=== PATIENT | female | born 1985 | race Caucasian/White ===

== ENCOUNTER 2017-01-12 15:08 | Emergency (ER) | payer MEDICAID ==
[~2017-01-12] VITALS: Ht 162.6 cm; Wt 45.8 kg
[~2017-01-12 15:08] MED LIST: AMPH20TA2 PO; AZIT250T5 PO; DULO30CA3 PO; DULO60CA6 PO; LAMO150T3 PO; LORA-405 PO; PRD20T PO; ZOLP10TA PO
[2017-01-12] MEDS ORDERED: RANI150T15 PO (15:44)
[2017-01-12] MEDS ORDERED: DIAZ2TAB2 PO (15:44)
[2017-01-12] MEDS ORDERED: DIPH25CA79 PO (15:44)
[2017-01-12] MEDS ORDERED: RANI300T6 PO (15:44)
[2017-01-12] MEDS ORDERED: ONDN4T PO (15:44)
[2017-01-12 17:03] LABS: BILIRUBIN,URINE NEGATIVE (NEGATIVE); KETONES,URINE 2+ (NEGATIVE); LEUKOCYTE ESTERASE ,URINE 1+ (NEGATIVE); NITRITE,URINE NEGATIVE (NEGATIVE); PH,URINE 6 (5-9); PROTEIN,URINE 2+ (NEGATIVE); UROBILINOGEN,URINE NORMAL (NORMAL)
[2017-01-12] MEDS ORDERED: KETOROLAC 30 MG/ML VIAL IVP ONE (17:30)
[2017-01-12] MEDS ORDERED: IOHEXOL 350 MG/ML 100 ML (OMNIPAQUE 350) VIAL IV ONE (18:15)
[2017-01-12] MEDS ORDERED: NS 100 ML (IVPB) BAG IV ONE (18:15)
--- NOTE | 2017-01-12 18:29 | ED Abdominal Pain ---
General Chief Complaint: Abdominal/GI Problems Stated Complaint: ABD/PELVIC PAIN Nursing Triage Note: C/O PAIN TO ABD.STATES SHE WAS IN HOSPITAL AT [facility] BUT HER WHOLE BODY STILL ACHES. THIS HAS BEEN WORSE FOR THE LAST 4 DAYS. " ALL KINDS OF TESTS" WERE COMPLETED PER PT. SAW CLEMENCIA JEZ HAD XRAY OF PELVIC AREA ET CHEST. Sepsis Screen: No Definite Risk Source of Information: Patient Exam Limitations: No Limitations History of Present Illness Time Seen By Provider: 18:28 Initial Comments To ER with reports of left lower quadrant abdominal pain. 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 No fevers or chills. She is still on keflex and flagyl. Timing/Duration: 1-2 Days Severity/Quality: Moderate Location: [facility] Radiation: No Radiation Allergies and Home Medications Allergies Coded Allergies: Penicillins (Verified Allergy, Intermediate, 06/27/16) amoxicillin (Verified Allergy, Mild, 06/27/16) clindamycin (Verified Allergy, Mild, 06/27/16) erythromycin base (Verified Allergy, Mild, 06/27/16) strawberry (Verified Allergy, Mild, 06/27/16) Home Medications Dextroamphetamine/Amphetamine 20 Mg Tablet, 20 MG PO BID, (Reported) Diazepam 2 Mg Tablet, 2 MG PO HS, (Reported) Diphenhydramine HCl 25 Mg Capsule, 25 MG PO PRN, (Reported) Duloxetine HCl 30 Mg Capsule.dr, 30 MG PO MORNING, (Reported) Duloxetine HCl 60 Mg Capsule.dr, 60 MG PO HS, (Reported) Lamotrigine 150 Mg Tablet, 150 MG PO HS, (Reported) Lorazepam 1 Mg Tablet, 1 MG PO HS, (Reported) Lorazepam 1 Mg Tablet, 1 MG PO TID PRN for ANXIETY, (Reported) Ondansetron HCl 4 Mg Tab, 4 MG PO PRN, (Reported) Polyethylene Glycol 3350 17 Gm Powd.pack, 17 GM PO BID, #10 Prescribed by: OMI SULLIVAN on 01/12/172027 Ranitidine HCl 150 Mg Tablet, 150 MG PO, (Reported) Ranitidine HCl 300 Mg Tablet, 300 MG PO PRN, (Reported) Zolpidem Tartrate 10 Mg Tablet, 10 MG PO HS, (Reported) Review of Systems Constitutional: see HPI EENTM: No Symptoms Reported Cardiovascular: No Symptoms Reported Gastrointestinal: See HPI, Abdominal Pain Genitourinary: No Symptoms Reported Musculoskeletal: no symptoms reported Skin: no symptoms reported Psychiatric/Neurological: No Symptoms Reported Endocrine: No Symptoms Reported Hematologic/Lymphatic: No Symptoms Reported (we did labs on a) Past Ywcywqz-Rcrkwl-Zwfprr Hx Patient Social History Alcohol Use: Denies Use Recreational Drug Use: No Type Used: Cigarettes Recent Foreign Travel: No Contact w/Someone Who Travel: No Recent Infectious Disease Expo: No Recent Hopitalizations: Yes (IN [place] ET D/C SUNDAY EVENING) Seasonal Allergies Seasonal Allergies: No Surgeries HX Surgeries: Yes Surgeries: Appendectomy, Gallbladder Respiratory Hx Respiratory Disorders: No Cardiovascular Hx Cardiac Disorders: No Neurological Hx Neurological Disorders: No Genitourinary Hx Genitourinary Disorders: No Gastrointestinal Hx Gastrointestinal Disorders: Yes (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) Gastrointestinal Disorders: Gastroesophageal Reflux Musculoskeletal Hx Musculoskeletal Disorders: No Endocrine Hx Endocrine Disorders: No HEENT HX ENT Disorders: No Cancer Hx Cancer: No Psychosocial Hx Psychiatric Problems: Yes Behavioral Health Disorders: Anxiety, Depression Blood Transfusions Hx Blood Disorders: No Adverse Reaction to a Blood Tr: No Family Medical History Significant Family History: Cancer, Diabetes Physical Exam Vital Signs VS - Last 72 Hours, by Label 01/12/17 15:35 Temp 97.5 Pulse 113 Resp 20 B/P (MAP) 132/101 O2 Delivery Room Air Capillary Refill : Less Than 3 Seconds General Appearance: WD/WN, no apparent distress HEENT: PERRL/EOMI, normal ENT inspection Neck: non-tender, full range of motion Respiratory: no respiratory distress, no accessory muscle use Cardiovascular: regular rate, rhythm, no murmur Gastrointestinal: normal bowel sounds, soft, tenderness Neurologic/Psychiatric: alert, normal mood/affect, oriented x 3 Skin: normal color, warm/dry Progress/Results/Core Measures Results/Orders Lab Results Laboratory Tests Test 01/12/17 16:30 01/12/17 20:00 Range/Units Urine Color PRIYA H Urine Clarity SLIGHTLY CLOUDY Urine pH 6 5-9 Urine Specific [place] 1.015 L 1.016-1.022 Urine Protein 2+ H NEGATIVE Urine Glucose (UA) NEGATIVE NEGATIVE Urine Ketones 2+ H NEGATIVE Urine Nitrite NEGATIVE NEGATIVE Urine Bilirubin NEGATIVE NEGATIVE Urine Urobilinogen NORMAL NORMAL MG/DL Urine Leukocyte Esterase 1+ H NEGATIVE Urine RBC (Auto) 5+ H NEGATIVE Urine RBC 50-100 H /HPF Urine WBC 2-5 /HPF Urine Squamous Epithelial Cells 2-5 /HPF Urine Crystals NONE /LPF Urine Bacteria NEGATIVE /HPF Urine Casts NONE /LPF Urine Mucus NEGATIVE /LPF Urine Culture Indicated NO Urine Opiates Screen POSITIVE H NEGATIVE Urine Oxycodone Screen POSITIVE H NEGATIVE Urine Methadone Screen NEGATIVE NEGATIVE Urine Propoxyphene Screen NEGATIVE NEGATIVE Urine Barbiturates Screen NEGATIVE NEGATIVE Ur Tricyclic Antidepressants Screen POSITIVE H NEGATIVE Urine Phencyclidine Screen NEGATIVE NEGATIVE Urine Amphetamines Screen POSITIVE H NEGATIVE Urine Methamphetamines Screen NEGATIVE NEGATIVE Urine Benzodiazepines Screen POSITIVE H NEGATIVE Urine Cocaine Screen NEGATIVE NEGATIVE Urine Cannabinoids Screen NEGATIVE NEGATIVE White Blood Count 9.8 4.3-11.0 10^3/uL Red Blood Count 4.48 4.35-5.85 10^6/uL Hemoglobin 13.3 11.5-16.0 G/DL Hematocrit 40 35-52 % Mean Corpuscular Volume 90 80-99 FL Mean Corpuscular Hemoglobin 30 25-34 PG Mean Corpuscular Hemoglobin Concent 33 32-36 G/DL Red Cell Distribution Width 16.6 H 10.0-14.5 % Platelet Count 368 130-400 10^3/uL Mean Platelet Volume 8.7 7.4-10.4 FL Neutrophils (%) (Auto) 45 42-75 % Lymphocytes (%) (Auto) 38 12-44 % Monocytes (%) (Auto) 11 0-12 % Eosinophils (%) (Auto) 5 0-10 % Basophils (%) (Auto) 1 0-10 % Neutrophils # (Auto) 4.5 1.8-7.8 X 10^3 Lymphocytes # (Auto) 3.8 1.0-4.0 X 10^3 Monocytes # (Auto) 1.0 0.0-1.0 X 10^3 Eosinophils # (Auto) 0.5 H 0.0-0.3 10^3/uL Basophils # (Auto) 0.1 0.0-0.1 10^3/uL Sodium Level 139 135-145 MMOL/L Potassium Level 3.6 3.6-5.0 MMOL/L Chloride Level 105 98-107 MMOL/L Carbon Dioxide Level 21 21-32 MMOL/L Anion Gap 13 5-14 MMOL/L Blood Urea Nitrogen 12 7-18 MG/DL Creatinine 0.92 0.60-1.30 MG/DL Estimat Glomerular Filtration Rate > 60 BUN/Creatinine Ratio 13 Glucose Level 73 70-105 MG/DL Calcium Level 9.2 8.5-10.1 MG/DL My Orders Orders - OMI SULLIVAN APRN Ua Culture If Indicated (01/12/17 16:51) Urine Bedside (01/12/17 16:53) Drug Screen Stat (Urine) (01/12/17 17:09) Cbc With Automated Diff (01/12/17 17:26) Basic Metabolic Panel (01/12/17 17:26) Ketorolac Injection (Toradol Injection) (01/12/17 17:30) Iohexol Injection (Omnipaque 350 Mg/Ml 1 (01/12/17 18:15) Ns (Ivpb) (Sodium Chloride 0.9% Ivpb Bag (01/12/17 18:15) Ct Abd/Pelvis Wo(Kidney Stone) (01/12/17 18:04) Ketorolac Injection (Toradol Injection) (01/12/17 18:30) Morphine Injection (Morphine Injection (01/12/17 19:45) Us Non Ob Transvaginal [id number] (01/12/17 19:41) Medications Given in ED Current Medications Medications Dose Ordered Sig/Hieu Route Start Time Stop Time Status Last Admin Dose Admin Ketorolac Tromethamine 30 mg ONCE ONCE IVP 01/12/17 17:30 01/12/17 17:31 DC 01/12/17 18:53 30 MG Morphine Sulfate 4 mg ONCE ONCE IVP 01/12/17 19:45 01/12/17 19:46 DC 01/12/17 19:51 4 MG Vital Signs/I&O Vital Sign - Last 12Hours 01/12/17 15:35 Temp 97.5 Pulse 113 Resp 20 B/P (MAP) 132/101 O2 Delivery Room Air Blood Pressure Mean: 111 Point of Care Testing Urine -Bedside: Negative Progress Note : Progress Note 1924-patient has demanded IV pain medication multiple times and is now raising her voice. When I told her that her CT scan appeared normal and that we could not find any evidence of possible ectopic or bad infection as she states they told her that she had at [place] she then states this is a bad HAE attack and that she needs antihistamines and IV pain medications. K tracks shows that she has had 10 prescribers write for 41 controlled substance prescriptions in the past year. When asked where she was diagnosed with this history of hereditary angioedema she states "are you fucking kidding me? But cannot give me the name of the physician who diagnosed her and instead hands me a card from [employer] in [facility] with the name of a manager game who she states will confirm her story. I did receive old records from [facility] after having the patient signed consent which shows that she was admitted there for pelvic inflammatory disease with a left tubo-ovarian abscess discharged on 01/07/17. Diagnostic Imaging Diagonstic Imaging: CT Comments NAME: DENIZ SALAMANCA MED REC#: [id number] PT STATUS: REG ER : 1985 PHYSICIAN: OMI SULLIVAN APRN ADMIT DATE: 01/12/17/ER Draft Date of Exam:01/12/17 CT ABD/PELVIS WO(KIDNEY STONE) PROCEDURE: CT urinary tract, rule out kidney stone. TECHNIQUE: Multiple contiguous axial images were obtained through the abdomen and pelvis without the use of intravenous contrast. INDICATION: A 31-year-old female presents to the ER with abdominal pain with increasing intensity over the last four days. Trace hematuria, left lower quadrant pain for one week. COMPARISONS: 06/27/2016. FINDINGS: Lung bases show few patchy atelectatic-type infiltrates but no significant consolidations. The visualized cardiac contour is grossly normal. Liver shows uniform attenuation. Gallbladder is surgically absent. Spleen and GE junction are normal. Stomach and duodenal sweep are grossly normal. Pancreas shows sharp margins. Adrenals are normal. Kidneys show some mild bilateral nephrocalcinosis with small discrete renal calculi. The largest on the left measures approximately 3 mm and the largest on the right measures 2 mm. There is however no evidence of hydronephrosis or hydroureter. Both ureters are seen intermittently through their course. Bladder is underfilled. The nonopacified loops of small bowel are grossly unremarkable. There is a large quantity of fecal load throughout the colon to the rectum. There is no free air, free fluid, or adenopathy. The appendix is not clearly delineated, but there is no periappendiceal region stranding to suggest an inflammatory process. The uterus and adnexa appear grossly unremarkable. Bone windows show no gross abnormalities. IMPRESSION: 1. Fecal colon with a large quantity of fecal load throughout the colon to the rectum. 2. Bilateral nephrocalcinosis with multiple small punctate 2 to 3 mm-sized discrete calculi bilaterally. There is however no evidence of obstructive uropathy. 3. No areas of peritoneal inflammation seen. The appendix is not clearly delineated but there is no periappendiceal region stranding to suggest an inflammatory process. 4. Few patchy bilateral atelectatic infiltrates but no significant consolidations. Additional nonemergent findings, as described above. Dictated on workstation # [id number] Dict: 01/12/17 1816 Trans: 01/12/17 1832 [id number] Interpreted by: MEGAN SCHAEFFER MD Electronically signed by: Departure Communication Progress Notes 2100-I discussed with the patient her constipation and left ovarian cyst and the need for repeat ultrasound in 6 months. Patient states "I don't know if you think I'm making up this hereditary angioedema or if you don't think it exists, well what ever nevermind". Patient reported to her RN Liss that "you' re the only reason I havent gone crazy and left here in handcuffs" Impression Impression: Primary Impression: Abdominal pain Additional Impression: Constipation Disposition: 01 HOME, SELF-CARE Condition: Stable Departure-Patient Inst. Decision time for Depature: 20:26 Referrals: [facility] (PCP/Family) Primary Care Physician Patient Instructions: Constipation, Adult (DC), Ovarian Cyst (DC) Add. Discharge Instructions: 1. Follow-up with your regular doctor next week 2. Return to the emergency room for fevers 3. Continue taking your antibiotics as prescribed by [facility]. ALl discharge instructions reviewed with patient and/or family. Voiced understanding. Scripts Polyethylene Glycol 3350 (Miralax) 17 Gm Powd.pack 17 GM PO BID, #10 EACH Prov: OMI SULLIVAN APRN 01/12/17 OMI SULLIVAN APRN Jan 12, 2017 18:29
[2017-01-12] MEDS ORDERED: KETOROLAC 60 MG/2 ML VIAL IM ONE (18:30)
--- NOTE | 2017-01-12 18:33 | Diagnostic Imaging Report ---
PROCEDURE: CT urinary tract, rule out kidney stone. TECHNIQUE: Multiple contiguous axial images were obtained through the abdomen and pelvis without the use of intravenous contrast. INDICATION: A 31-year-old female presents to the ER with abdominal pain with increasing intensity over the last four days. Trace hematuria, left lower quadrant pain for one week. COMPARISONS: 06/27/2016. FINDINGS: Lung bases show few patchy atelectatic-type infiltrates but no significant consolidations. The visualized cardiac contour is grossly normal. Liver shows uniform attenuation. Gallbladder is surgically absent. Spleen and GE junction are normal. Stomach and duodenal sweep are grossly normal. Pancreas shows sharp margins. Adrenals are normal. Kidneys show some mild bilateral nephrocalcinosis with small discrete renal calculi. The largest on the left measures approximately 3 mm and the largest on the right measures 2 mm. There is however no evidence of hydronephrosis or hydroureter. Both ureters are seen intermittently through their course. Bladder is underfilled. The nonopacified loops of small bowel are grossly unremarkable. There is a large quantity of fecal load throughout the colon to the rectum. There is no free air, free fluid, or adenopathy. The appendix is not clearly delineated, but there is no periappendiceal region stranding to suggest an inflammatory process. The uterus and adnexa appear grossly unremarkable. Bone windows show no gross abnormalities. IMPRESSION: 1. Fecal colon with a large quantity of fecal load throughout the colon to the rectum. 2. Bilateral nephrocalcinosis with multiple small punctate 2 to 3 mm-sized discrete calculi bilaterally. There is however no evidence of obstructive uropathy. 3. No areas of peritoneal inflammation seen. The appendix is not clearly delineated but there is no periappendiceal region stranding to suggest an inflammatory process. 4. Few patchy bilateral atelectatic infiltrates but no significant consolidations. Additional nonemergent findings, as described above. Dictated by: Dictated on workstation # [id number]
[2017-01-12] MEDS ORDERED: morphine INJ 10 MG/ML 1ML (SYR OR VIAL) IVP ONE (19:45)
[2017-01-12 20:08] LABS: BASOPHILS # (AUTO) 0.1 10^3/uL (0.0-0.1); BASOPHILS % (AUTO) 1 % (0-10); EOSINOPHILS # (AUTO) 0.5 10^3/uL (0.0-0.3); EOSINOPHILS % (AUTO) 5 % (0-10); LYMPHOCYTES # (AUTO) 3.8 X 10^3 (1.0-4.0); LYMPHOCYTES % (AUTO) 38 % (12-44); MEAN CORPUSCULAR HEMOGLOBIN 30 PG (25-34); MEAN CORPUSCULAR HGB CONC 33 G/DL (32-36); MEAN CORPUSCULAR VOLUME 90 FL (80-99); MEAN PLATELET VOLUME 8.7 FL (7.4-10.4); MONOCYTES % (AUTO) 11 % (0-12); NEUTROPHILS # (AUTO) 4.5 X 10^3 (1.8-7.8); NEUTROPHILS % (AUTO) 45 % (42-75); PLATELET COUNT 368 10^3/uL (130-400); RED BLOOD COUNT 4.48 10^6/uL (4.35-5.85); RED CELL DISTRIBUTION WIDTH 16.6 % (10.0-14.5); WHITE BLOOD COUNT 9.8 10^3/uL (4.3-11.0)
[2017-01-12 20:25] LABS: ANION GAP 13 MMOL/L (5-14); BLOOD UREA NITROGEN 12 MG/DL (7-18); BUN/CREATININE RATIO 13; CALCIUM 9.2 MG/DL (8.5-10.1); CARBON DIOXIDE 21 MMOL/L (21-32); CHLORIDE 105 MMOL/L (98-107); CREATININE SERUM 0.92 MG/DL (0.60-1.30); GFR ESTIMATED > 60; GLUCOSE 73 MG/DL (70-105); POTASSIUM 3.6 MMOL/L (3.6-5.0); SODIUM 139 MMOL/L (135-145)
[2017-01-12] MEDS ORDERED: POLY17PO6 PO (20:28)
[2017-01-12 21:00] VITALS: BP 141/105
--- NOTE | 2017-01-12 21:04 | Diagnostic Imaging Report ---
Procedure: US non OB transvaginal [id number]. Technique: Transvaginal grayscale, color Doppler and pulse duplex imaging of the pelvis was performed. Indication: Pelvic pain. Findings: The uterus measures 6.1 x 4.3 x 3.8 cm. The myometrium is normal in echogenicity without discrete mass. The endometrium measures up to 0.4 cm where visualized, and is normal in echogenicity. Right ovary was not identified due to surrounding bowel gas. The left ovary measures 2.7 x 3.1 x 2.5 cm. Within the left ovary, there is a hypovascular homogeneously hypoechoic structure, measuring 1.7 x 1.8 x 2.2 cm. Blood flow is present in the left ovary on color Doppler imaging. No suspicious adnexal mass or fluid collection. Trace simple free pelvic fluid. Impression: 1. Avascular homogeneously hypoechoic focus in the left ovary favors hemorrhagic cyst. Consider followup ultrasound in six weeks to ensure resolution and exclude a vascular neoplasm. 2. No evidence of pelvic abscess. 3. Trace free pelvic fluid. Dictated by: Dictated on workstation # [id number]
--- OUTSIDE RECORDS SUMMARY | 2017-02-04 09:02 | XMS REPORT | Continuity of Care Document ---
Author Author [facility] Organization [facility] Address Unknown Phone Unavailable Care Team Providers Care Bindery Machine Feeder Offbearer Name Role Phone Cris Lehman PCP [phone] Source Comments Some departments are not documenting in the electronic medical record. If you do not see the information that you expected, contact Release of Information in the Health Information Management department at [phone] for further assistance in locating additional records.[facility] Active Allergies and Adverse Reactions Allergen Noted Date Severity Reactions Comments Amoxicillin 09/16/2008 HIVES Benadryl 01/21/2013 SEE COMMENTS Addicted to IV benadryl, does tolerate it without complication other than sedation. Has a history of port infection many times from her crushing benadryl and putting it in there. Erythromycin 09/16/2008 HIVES Hydrocodone 11/15/2009 ITCHING Pcn 09/16/2008 HIVES [place] 12/07/2009 HIVES strawberries Current Medications Prescription Sig. Disp. Refills Start End Date Status Date ranitidine,+, (ZANTAC) Take 150 mg by mouth Active 150 mg tablet Twice Daily. diphenhydrAMINE Take 1 Cap by mouth Every 30 Cap 0 08/07/20 Active (BENADRYL) 50 mg PO 6 Hours as needed. 10 capsule LORazepam (ATIVAN) 1 mg Take 1 mg by mouth daily. Active tablet zolpidem (AMBIEN) 10 mg Take 1 Tab by mouth at 30 Tab 0 12/02/19 Active tablet bedtime as needed. 12 citalopram (CELEXA) 10 mg Take 3 Tabs by mouth at 90 Tab 0 20 Active tablet bedtime daily. 12 predniSONE (DELTASONE) 20 Take 3 Tabs by mouth 15 Tab 0 12/02/19 Active mg tablet daily. Take 60 mg a day 12 for 5 days C1 esterase inhibitor Administer 1,000 Units 12/02/19 Active (BERINERT) 500 unit through vein three times 12 injection weekly. Mon, wed ,sun DULoxetine DR (CYMBALTA) Take 60 mg by mouth Active 60 mg capsule daily. DEXAMETHASONE (DECADRON Take by mouth. 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 Multiple family members affected. Previously tried Firazyr, Berinert and Cinryze. Firazyr causes large local reactions and Berinert was not helpful. Cinryze was helpful but IV access is difficult and port had to be removed due to infection. Never trailed on Kalbitor for acute attacks. Current management includes antihistamines, steroids and narcotics for acute relief of pain/acutes. Reports relief within 1 hour. Occasionally, will receive FFP and relief with FFP. She is having more frequent attacks with increased stress at home. Multiple hospitalizations in the last few months. Patient recently had two teeth removed and attack after dental work. Previously managed by microsoft application developer at [facility]. - Please have her sign release of information for records for [facility] community program assistant. - Will start on Kalbitor for acute HAE attacks. Will assist with arranging today. - Has failed Berniert and will not likely do well on Cinryze due to IV access issues. Has not tolerated Firazyr. - We will not prescribe benadryl and/or narcotics for acute relief of attacks, particularly at home. - Can use FFP if seen and evaluated in emergency setting if no relief with Kalbitor. - Suggest limit stress. If she is to have any procedures (dental) would need to dose with Kalbitor prior to procedure. - Discussed control with patient. She is on depo shot as control. Discuss Kalbitor is class C and she expressed understanding. Bacterial vaginosis 01/03/2010 IUFD (intrauterine ) 11/07/2008 , subsequent 11/07/2008 Social History Tobacco Use Types Packs/Day Years Used Date Current Every Day Smoker 0.5 5 Smokeless Tobacco: Never Used Alcohol Use Drinks/Week oz/Week Comments No Last Filed Vital Signs Vital Sign Reading Time Taken Blood Pressure 139/82 09/02/2013 9:44 AM RETAIL WIRELESS SALES REPRESENTATIVE Pulse 88 09/02/2013 9:44 AM RETAIL WIRELESS SALES REPRESENTATIVE Temperature 36.4 C (97.5 F) 09/02/2013 9:44 AM RETAIL WIRELESS SALES REPRESENTATIVE Respiratory Rate 17 09/02/2013 9:44 AM RETAIL WIRELESS SALES REPRESENTATIVE Height 1.613 m (5' 3.5") 09/02/2013 9:44 AM RETAIL WIRELESS SALES REPRESENTATIVE Weight 47.083 kg (103 lb 12.8 09/02/2013 9:44 AM RETAIL WIRELESS SALES REPRESENTATIVE oz) Body Mass Index 18.1 09/02/2013 9:44 AM RETAIL WIRELESS SALES REPRESENTATIVE Oxygen Saturation 99% 12/02/2011 2:55 PM RETAIL WIRELESS SALES REPRESENTATIVE Plan of Care Health Maintenance Due Date Last Done Comments Physical (Comprehensive) 1993 Exam Pertussis Vaccine 1997 Tetanus Vaccine 2003 Cervical Cancer Screening 07/06/2012 07/06/2009 Influenza Vaccine 06/15/2017 Results from Last 3 Months Not on file
== END 2017-01-12 21:15 | disposition home or self-care (01) ==
LOC: EDUNIT# 15:08 → ER 15:10
DX: K59.00 Constipation, unspecified (principal); N83.202 Unspecified ovarian cyst, left side; N20.0 Calculus of kidney; Z79.899 Other long term (current) drug therapy
CPT/HCPCS: 36415; 74176; 76830; 80048; 80306; 81000; 84703; 85025; 96374; 96375; 99282

== ENCOUNTER → 2017-03-16 | Outpatient (CLI) | payer MEDICAID ==
[~2017-03-16] MED LIST changes: +DIAZ2TAB2 PO; +DIPH25CA79 PO; +ONDN4T PO; +POLY17PO6 PO; +RANI150T15 PO; +RANI300T6 PO
== END ==
LOC: PREOP 05:43
PROVIDERS: ATTEND Surgery
DX: Z01.818 Encounter for other preprocedural examination (principal); K21.9 Gastro-esophageal reflux disease without esophagitis

== ENCOUNTER → 2017-04-05 | Outpatient (CLI) | payer MEDICAID | DX: N83.202 Unspecified ovarian cyst, left side (principal); N92.1 Excessive and frequent menstruation with irregular cycle ==

== ENCOUNTER 2017-04-09 09:00 | Outpatient (CLI) | payer MEDICAID ==
[~2017-04-09] VITALS: Ht 162.6 cm; Wt 45.8 kg
[2017-04-09] MEDS ORDERED: QUET25TA PO (09:44)
[2017-04-10] MEDS ORDERED: SUCR1TAB36 PO (10:08)
[2017-04-10] MEDS ORDERED: PANT40TA2 PO (10:08)
== END 2017-04-09 10:06 ==
LOC: PREOP 09:00
PROVIDERS: ATTEND Surgery
DX: Z01.818 Encounter for other preprocedural examination (principal); K21.9 Gastro-esophageal reflux disease without esophagitis

== ENCOUNTER 2017-04-10 08:14 | Day surgery (SDC) | payer MEDICAID ==
[~2017-04-10] VITALS: Ht 162.6 cm; Wt 45.8 kg
[~2017-04-10 08:14] MED LIST changes: +QUET25TA PO
[2017-04-10] MEDS ORDERED: LACTATED RINGERS 1,000 ML IV STA ×2 (08:18→08:19)
[2017-04-10] MEDS ORDERED: HURRICAINE EXT TUBE (BENZOCAINE) XX PRN (08:30)
[2017-04-10] MEDS ORDERED: PROPOFOL INJECTION 50 ML IV ONE (08:33)
[2017-04-10] MEDS ORDERED: MIDAZOLAM 2 MG/2 ML (VERSED) VIAL ONE (08:33)
[2017-04-10 08:40] VITALS: BP 116/82
[2017-04-10] MEDS ORDERED: HURRICAINE EXT TUBE (BENZOCAINE) ONE (08:54)
--- NOTE | 2017-04-10 09:07 | Progress Note-Pre Operative ---
Pre-Operative Progress Note H&P Reviewed The H&P was reviewed, patient examined and no changes noted. Date Seen by Provider: Apr 10, 2017 Time Seen by Provider: 09:06 Date H&P Reviewed: Apr 10, 2017 Time H&P Reviewed: 09:06 Pre-Operative Diagnosis: gerd SONA MEDINA DO Apr 10, 2017 9:07 am
--- NOTE | 2017-04-10 09:47 | Progress Note-Post Operative ---
Post-Operative Progess Note Surgeon (s)/Brand Analyst (s) Surgeon SONA MEDINA DO Brand Analyst: na Pre-Operative Diagnosis gerd Post-Operative Diagnosis duodenitis,gastritis, hiatal hernia, reflux esophagitis Procedure & Operative Findings Date of Procedure 04/10/17 Procedure Performed/Findings egd c biopsies Anesthesia Type per cash posting clerk Estimated Blood Loss Estimated blood loss (mL): none Specimens/Packing Specimens Removed antrum, distal esophagus SONA MEDINA DO Apr 10, 2017 9:47 am
[2017-04-10 09:55] VITALS: BP 110/72
[2017-04-10] MEDS ORDERED: PANT40TA2 PO (10:08)
[2017-04-10] MEDS ORDERED: SUCR1TAB36 PO (10:08)
--- NOTE | 2017-04-10 10:13 | Discharge Inst-Simple/Standard ---
Discharge Inst-Standard Discharge Medications New, Converted or Re-Newed RX: Transmitted to Pharmacy Patient Instructions/Follow Up Plan of Care/Instructions/FU: Follow up with Dr. Almendarez in 3 weeks Take protonix 40 mg bid x 2 weeks and then daily after that Take carafate 1 gm QID Activity as Tolerated: Yes Discharge Diet: No Restrictions SCOT CARMEN APRN Apr 10, 2017 10:13
--- OUTSIDE RECORDS SUMMARY | 2017-04-10 10:18 | XMS REPORT | Continuity of Care Document ---
Author Author [employer] Organization [facility] Address Unknown Phone Unavailable Care Team Providers Care Abstract Manager Name Role Phone [employer] Unavailable Unavailable Problems Problem Status Onset Date Classification Date Reported Comments Source Abdominal pain, unspecified site 07/01/2015 Diagnosis [facility] Abdominal pain, unspecified site 07/09/2014 Diagnosis [facility], [facility] Bronchitis, not specified as acute or chronic 04/25/2014 Diagnosis 04/30/2014 [facility] Other deficiencies of circulating enzymes 03/16/2014 Diagnosis 03/20/2014 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, [facility], [facility] Abdominal pain - cause unknown (finding) Active Problem 11/12/2015 [facility], [facility] Chronic obstructive lung disease (disorder) Active Problem 11/12/2015 [facility], [facility], [facility], [facility] Depressive disorder (disorder) Active Problem 11/12/2015 [facility] , [facility], [facility], [facility] Hiatal hernia (disorder) Active Problem 11/12/2015 [facility], [facility], [facility], [facility] Somatization disorder (disorder) Active Problem 2015 [facility], [facility] Other and unspecified noninfectious gastroenteritis and colitis Diagnosis 10/03/2014 [facility] Abdominal pain, generalized Diagnosis 01/22/2014 [facility] Swelling, mass, or lump in head and neck Diagnosis 01/22 [facility] Medications Medication Details Route Status Patient Instructions Ordering Provider Order Date Source No Known Medications No known medications Active [facility] Allergies, Adverse Reactions, Alerts Substance Category Reaction Severity Reaction type Status Date Reported Comments Source Amoxicillin Assertion HIVES Drug allergy [facility], [facility], [facility], [facility] , [facility] Clindamycin Assertion Drug allergy [facility], [facility], [facility], [facility], [facility] Erythromycin Assertion HIVES Drug allergy Has tolerated azithromycin [facility], [facility], [facility], [facility], [facility], [facility] penicillin Assertion HIVES Drug allergy [facility], [facility], [facility], [facility], [facility] amoxicillin drug allergy HIVES Allergy Active [facility], [facility]. clindamycin drug allergy Allergy Active [facility], [facility]. erythromycin drug allergy HIVES Allergy Active 1Has tolerated azithromycin [facility], [facility]. penicillin drug allergy HIVES Allergy Active [facility], [facility], [facility]. Immunizations Immunization Date Given Site Status Last Updated Comments Source No data available for this section No data available for this section [facility], [facility], [facility], [facility], [facility], [facility] Results Vital Signs Encounters Location Location Details Encounter Type Encounter Number Reason For Visit Attending Provider ADM Date DC Date Status Source [facility] CD:285113 Emergency [id number] Morris Gregory 01/30/2013 Active [facility] CD:302010 Emergency [id number] Osama Rafi 05/19/2013 05/19/2013 Active [facility] CD:907927 Emergency [id number] Osama Rafi 05/26/2013 05/26/2013 Active [facility] CD:538621 Emergency [id number] Ronaldo Katasani 06/20/2013 06/20/2013 Active [facility] CD:816279 Emergency [id number] Osama Rafi 06/23/2013 06/23/2013 Active [facility] CD:794777 Emergency [id number] Ronaldo Katasani 07/05/2013 07/05/2013 Active [facility] CD:380323 Emergency [id number] MISTY VALDEZ 07/21/2013 07/21/2013 Active [facility] CD:205591 Emergency [id number] Morris Geovanna 07/27/2013 07/27/2013 Active [facility] CD:318595 Emergency [id number] Osama Rafi 08/02/2013 08/02/2013 Active [facility] CD:651277 Emergency [id number] [facility] 08/07/2013 08/07/2013 Active [facility] CD:458403 Emergency [id number] [facility] 08/07/2013 08/07/2013 Active [facility] CD:489419 Emergency [id number] Loi Oshea 08/16/2013 Active [facility] CD:257723 Emergency [id number] Morris Jenkins 08/25/2013 Active [facility] CD:783416 Emergency [id number] [facility] 09/10/2013 09/10/2013 Active [facility] CD:367157 Emergency [id number] [facility] 09/22/2013 09/22/2013 Active [facility] CD:399885 Emergency [id number] [facility] 09/22/2013 09/22/2013 Active [facility] CD:584124 Emergency [id number] Osajuan Rafi 10/10/2013 10/10/2013 Active [facility] CD:070410 Emergency [id number] Ronaldo Silva 10/29/2013 10/30/[address] [facility] CD:767141 Inpatient [id number] [facility] 11/05/2013 11/05/2013 Active [facility] CD:964033 Inpatient [id number] [facility] 11/05/2013 11/05/2013 Active [facility] CD:011888 Inpatient [id number] Swapnil Boswell 11/05/2013 11/12/2013 Active [facility] [employer] CD:908123 Emergency [id number] Gurpreet Cabezasmael 11/25/2013 11/25/2013 Active [facility] CD:546641 Emergency [id number] Tony Cambria 12/24/2013 Active [facility] CD:56508697 Clinic ( Outpatient) [id number] [facility] 01/12/[address] [facility] CD:851647 [facility]patient [id number] [facility] 01/12/2014 01/12/2014 [facility] Cancel/No Show [id number] [facility] 01/12/2014 01/09/2014 [facility] CD:532838 Emergency [id number] Loi Oshea 01/16/2014 Active [facility] Emergency [id number] Gregory Valente 01/16/2014 01/18/2014 [facility] CD:515406 Emergency [id number] Ronaldo Calvoasaericka 01/18/2014 01/18/2014 Active [facility] Emergency [id number] Physician Non-Staff 01/18/2014 01/18/2014 [facility] CD:30023498 Clinic ( Outpatient) [id number] Randolph Schwarzid 01/26/[address] [facility] Cancel/No Show [id number] Randolph Yosi 01/26/2014 01/26/2014 [facility] CD:779648 Emergency [id number] Ronaldo Katasani 02/07/2014 02/07/[address] [facility] CD:514888 Emergency [id number] Ronaldo Lubnaasani 02/07/2014 02/07/2014 Active [facility] Emergency [id number] Ronaldo Lubnaasani 02/07/2014 02/09/2014 [facility] Cancel/No Show [id number] Shsahi [facility] 03/10/2014 03/10/2014 [facility] [id number] [facility] 03/16/2014 03/17/2014 [facility] CD:325729 Emergency [id number] Osama Rafi 04/05/2014 Active [facility] Emergency [id number] Physician Non-Staff 04/05/2014 04/07/2014 [facility]. [facility] CD:598789 Emergency [id number] Morris Geovanna 04/10/2014 04/10/2014 Active [facility] Emergency [id number] Physician Non-Staff 04/11/2014 04/12/2014 [facility] CD:891662 Emergency [id number] Tony Gifted Teacher 04/19/2014 Active [facility] Emergency [id number] Physician Non-Staff 04/19/2014 04/21/2014 [facility]. [facility] CD:720818 Emergency [id number] Osama Rafi 04/25/2014 04/25/2014 Active [facility] Emergency [id number] Osama Rafi 04/26/2014 04/27/2014 [facility]. [facility] CD:713632 Emergency [id number] Tony Gifted Teacher 05/23/2014 Active [facility] Emergency [id number] Physician Non-Staff 05/23/2014 05/25/2014 [facility] CD:117616 Emergency [id number] Osama Rafi 05/29/2014 Active [facility] Emergency [id number] Osama Rafi 05/29/2014 05/31/2014 [facility] CD:574738 Emergency [id number] Ronaldo Rubioni 05/30/2014 05/30/2014 Active [facility] Emergency [id number] Physician Non-Staff 05/31/2014 06/01/2014 [facility] CD:296099 Emergency [id number] Peter Dartty 06/19/2014 06/19/2014 Active [facility] Emergency [id number] Physician Non-Staff 06/19/2014 06/21/2014 [facility] CD:475688 Emergency [id number] Osama Rafi 07/09/2014 07/09/2014 [facility] CD:182252 Emergency [id number] Osama Rafi 07/09/2014 Active [facility] Emergency [id number] Physician Non-Staff 07/09/2014 07/11/2014 [facility] CD:445453 Emergency [id number] Luis Alberto Marsh 07/28/2014 07/28/2014 [facility] CD:718189 Emergency [id number] Tony Gifted Teacher 08/21/2014 [facility] CD:916212 Emergency [id number] Osama Rafi 09/05/2014 09/05/2014 [facility] CD:272563 Emergency [id number] Tony Cambria 09/16/201412/2013 [facility] CD:592948 Emergency [id number] Osama Rafi 09/29/2014 09/29/2014 Active [facility] CD:193323 Emergency [id number] Swapnil Dodgetty 11/04/2014 11/04/2014 Active [facility] CD:458713 Emergency [id number] Carlos Radford 11/26/2014 11/26/2014 Active [facility] CD:681209 Emergency [id number] Gurpreet Rafi 11/27/2014 11/27/2014 Active [facility] CD:699980 Emergency [id number] Swapnil Galvinramirez 12/03/2014 12/03/2014 Active [facility] CD:502367 Emergency [id number] Luis Alberto Marsh 12/27/2014 12/27/2014 Active [facility] CD:110178 Emergency [id number] Tony Cambria 01/21/2015 Active [facility] CD:248698 Emergency [id number] Harmanal Rafi 01/31/2015 01/31/2015 Active [facility] CD:323127 Emergency [id number] Swapnil Dodgeramirez 02/06/2015 02/06/2015 Active [facility] CD:190058 Emergency [id number] Ronaldo Silva 04/17/2015 04/17/2015 [facility] M[facility] CD:132073 Emergency [id number] Carlos Radford 04/19/2015 04/19/2015 [facility] CD:566975 Emergency [id number] Luis Alberto Salma 05/23/2015 05/23/2015 Active [facility] CD:098957 Emergency [id number] Tony Gifted Teacher 05/30/2015 Active [facility] CD:629052 Emergency [id number] Swapnil Darnatalyay 07/01/2015 07/01/2015 Active [facility] CD:433803 Emergency [id number] Tony Gifted Teacher 09/20/2015 Active [facility] CD:583108 Emergency [id number] Pj Pate 11/07/2015 11/07/2015 [facility]:348003 Emergency [id number] Natalio Crawford 12/11/2015 12/11/2015 Active [facility] Procedures Procedure Code Date Perfomer Comments Source Colonoscopy, flexible, proximal to splenic flexure; diagnostic, with or without collection of specimen(s) by brushing or washing, with or without colon decompression (separate procedure) 01605 01/12/2014 [facility], [facility]. No data available for this section [facility], [facility]. Plan of Care Social History Assessment and Plan Family History Value Date Source Advance Directives Order Name Results Value Date Source
--- OUTSIDE RECORDS SUMMARY | 2017-04-10 10:19 | XMS REPORT | Continuity of Care Document ---
Author Author [facility] Organization [facility] Address Unknown Phone Unavailable Care Team Providers Care Tie Presser Name Role Phone Cris Lehman PCP [phone] Source Comments Some departments are not documenting in the electronic medical record. 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 Has a history of port infection many times from her crushing benadryl and putting it in there. Erythromycin 09/16/2008 HIVES Hydrocodone 11/15/2009 ITCHING Pcn 09/16/2008 HIVES Severance 12/07/2009 HIVES strawberries Current Medications Prescription Sig. [...] Tabs by mouth at 89 Tab 0 12/02/19 Active tablet bedtime daily. 12 predniSONE (DELTASONE) [...] attack after dental work. Previously managed by environmental engineer at [facility]. - Please have her sign release of information for records for [facility] driller and reamer. - Will start on Kalbitor for acute [...] Taken Blood Pressure 139/82 09/02/2013 9:44 AM ELECTRONIC HEAT SEAL OPERATOR Pulse 88 09/02/2013 9:44 AM ELECTRONIC HEAT SEAL OPERATOR Temperature 36.4 C (97.5 F) 09/02/2013 9:44 AM ELECTRONIC HEAT SEAL OPERATOR Respiratory Rate 17 09/02/2013 9:44 AM ELECTRONIC HEAT SEAL OPERATOR Height 1.613 m (5' 3.5") 09/02/2013 9:44 AM ELECTRONIC HEAT SEAL OPERATOR Weight 47.083 kg (103 lb 12.8 09/02/2013 9:44 AM ELECTRONIC HEAT SEAL OPERATOR oz) Body Mass Index 18.1 09/02/2013 9:44 AM ELECTRONIC HEAT SEAL OPERATOR Oxygen Saturation 99% 12/02/2011 2:55 PM ELECTRONIC HEAT SEAL OPERATOR Plan of Care Health Maintenance Due Date Last Done Comments Physical (Comprehensive) 1993 Exam Pertussis Vaccine 1997 Tetanus Vaccine 2003 Cervical Cancer Screening 07/06/2012 07/06/2009 Influenza Vaccine 06/15/2017 Results from Last 3 Months Not on file
--- OUTSIDE RECORDS SUMMARY | 2017-04-10 10:19 | XMS REPORT ---
Author Author VIVIANA RICH Organization [facility] Address [address] [place] [address] Care Team Providers Care Shot Examiner Name Role Phone MICHELLERICH Barahona Unavailable PROBLEMS Type Condition ICD9-CM Code [id number] Code Onset Dates Condition Status SNOMED Code Problem Acute bronchitis, unspecified organism J20.9 Active 19818650 Problem Gastroesophageal reflux disease, esophagitis presence not specified K21.9 Active 970652256 Assessment Acute bronchitis, unspecified organism J20.9 Jun, Active 99937807 Problem Tobacco abuse Z72.0 Active 088656873 Problem Tobacco abuse counseling Z71.6 Active 824619610 ALLERGIES Substance Reaction Event Type Date Status Penicillin V Potassium Unknown Drug Allergy Jun, Active Erythromycin Unknown Drug Allergy Jun, Active Clindamycin HCl Unknown Drug Allergy Jun, Active Amoxicillin Unknown Drug Allergy Jun, Active SOCIAL HISTORY No smoking Hx information available PLAN OF CARE VITAL SIGNS Height 5'4" in 2016 Weight 100.5 lbs 2016 Heart Rate 70 bpm 2016 Respiratory Rate 18 2016 BMI 17.25 kg/m2 2016 Blood pressure systolic 104 mmHg 2016 Blood pressure diastolic 68 mmHg 2016 MEDICATIONS Medication Instructions Dosage Frequency Start Date End Date Duration Status PredniSONE 10 mg Orally Once a day 1 tablet 24h Jun, Jun, 03 days Active Cymbalta Active Zofran ODT 4 MG Orally every 8 hrs PRN 1 tablet on the tongue and allow to dissolve Jun, Active Lamotrigine Active Ranitidine HCl 300 MG Orally Once a day 1 tablet at bedtime 24h Jun, Active Albuterol Sulfate HFA 108 (90 Base) MCG/ACT Inhalation every 4 hrs 2 puffs as needed 4h Jun, Active Adderall Active Azithromycin 250 MG Orally Once a day 2 tablets on the first day, then 1 tablet daily for 4 days 24h Jun, Jun, 5 day(s) Active Atlisbeth Active Vicky Active RESULTS No Results PROCEDURES Procedure Date Ordered Related Diagnosis Body Site Office Visit, Est Pt., Level 3 2016 IMMUNIZATIONS No Known Immunizations
--- OUTSIDE RECORDS SUMMARY | 2017-04-10 10:19 | XMS REPORT ---
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 Problem Acute bronchitis, unspecified organism J20.9 Active Problem Gastroesophageal reflux disease, esophagitis presence not specified K21.9 Active Problem 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 Assessment Gastroesophageal reflux disease, esophagitis presence not specified K21.9 Active Assessment Tobacco abuse Z72.0 Active Problem Tobacco abuse Z72.0 Active Problem Tobacco abuse counseling Z71.6 Active Medications Medication Code System Code Instructions Start Date End Date Status Dosage Ativan [facility] [address]-64 1 MG Orally every 6 hrs prn not defined Albuterol Sulfate HFA [facility] [address]-39 108 (90 Base) MCG/ACT Inhalation every 4 hrs 2016 2 puffs as needed Ranitidine HCl [facility] [address]-09 300 MG Orally Once a day 2016 1 tablet at bedtime Adderall [facility] [address]-80 20 MG Orally twice daily 2 tabs Lamotrigine [facility] [address]-43 150 MG Orally Once a day not defined Zofran ODT [facility] [address]-01 4 MG Orally every 8 hrs PRN 2016 1 tablet on the tongue and allow to dissolve Ambien [facility] [address]-13 5 MG Orally Once a day 1 tablet at bedtime as needed Cymbalta [facility] [address]-74 30 MG Orally Once a day, 2 caps at hs 1 capsule Procedures Procedure Coding System Code Date Office Visit, Est Pt., Level 3 CPT-4 31030 Jul 13, 2016 Vital Signs Date/Time: Jul 13, 2016 Cardiac Monitoring Heart Rate 90 bpm Weight 100 lbs Height 5'4" in BMI 17.16 Index Blood Pressure Diastolic 82 mmHg Blood Pressure Systolic 120 mmHg Results No Known Results Summary Purpose [employer] Submission
--- OUTSIDE RECORDS SUMMARY | 2017-04-10 10:19 | XMS REPORT ---
Author Author RICH MICHELLE Organization [employer] Address Unknown Phone Unavailable Care Team Providers Care Dental Laboratory Manager Name Role Phone RICH MICHELLE CP Unavailable Allergies, Adverse Reactions, Alerts Substance Reaction Event Type Penicillin V Potassium Info Not Available Drug Allergy Erythromycin Info Not Available Drug Allergy Clindamycin HCl Info Not Available Drug Allergy Amoxicillin Info Not Available Drug Allergy Problems Problem Type Condition Code Onset Dates Condition Status Assessment Encounter for screening for malignant neoplasm of cervix Z12.4 Active Assessment Screening for STD (sexually transmitted disease) Z11.3 Active Assessment Encounter for well woman exam Z01.419 Active Assessment Abnormal appearance of skin L98.9 Active Medications Medication Code System Code Instructions Start Date End Date Status Dosage Ativan [facility] [address]-44 not defined Adderall [facility] [address]-42 not defined Lamotrigine [facility] [address]-52 not defined Ambien [facility] [address]-60 not defined Cymbalta [facility] [address]-37 not defined Procedures Procedure Coding System Code Date No Charge CPT-4 13719 Jun 02, 2016 LAB NOT BILLED BY [facility] CPT-4 NOBLL Jun 02, 2016 SPECIMEN HANDLING CPT-4 28379 Jun 02, 2016 BIOPSY OF SKIN LESION CPT-4 44451 Jun 02, 2016 MCMAHON VAG, DNA, DIR PROBE CPT-4 44037 Jun 02, 2016 Preventive Care Est Pt. Age 18-39 CPT-4 72850 Jun 02, 2016 Vital Signs Date/Time: Jun 02, 2016 Cardiac Monitoring Heart Rate 66 bpm Weight 96.6 lbs Height 5'4" in BMI 16.58 Index Blood Pressure Diastolic 68 mmHg Blood Pressure Systolic 116 mmHg Results No Known Results Summary Purpose [employer] Submission
--- OUTSIDE RECORDS SUMMARY | 2017-04-10 10:19 | XMS REPORT | Continuity of Care Document ---
Author Author [facility] Organization [facility] Address Unknown Phone Unavailable Allergies Active Description Code Type Severity Reaction Onset Reported/Identified Relationship to Patient Clinical Status Yes Amoxicillin Drug Allergy N/A Adverse Reaction 02/17/2014 Yes Erythromycin Base Drug Allergy N/A Adverse Reaction 02/17/2014 Yes Penicillins Drug Allergy N/A Adverse Reaction 02/17/2014 Medications Problems Date Dx Coded Attending Type Code Diagnosis Diagnosed By 02/17/2014 Radha Ambrose DO Final 277.6 DEF CIRCULATE ENZYME NEC 02/17/2014 Radha Ambrose DO Final 305.1 TOBACCO USE DISORDER 02/17/2014 Radha Ambrose DO Final 780.97 ALTERED MENTAL STATUS 02/17/2014 Radha Ambrose DO Final 787.02 NAUSEA ALONE 02/17/2014 Radha Ambrose DO 787.20 DYSPHAGIA NOS 02/17/2014 Radha Ambrose DO Final 789.07 GENERALIZED ABD PAIN Procedures Results Encounters ACCT No. Visit Date/Time Discharge Status Pt. Type Provider Facility Loc./Unit Complaint [id number] 02/17/2014 19:12:00 2013 10:13:00 ACT Outpatient Radha Ambrose DO [facility] on [address]
--- OUTSIDE RECORDS SUMMARY | 2017-04-10 10:19 | XMS REPORT ---
Author Author KISHORE RICH [facility] eClinicalWorks Address Unknown Phone Unavailable Care Team Providers Care Day Habilitation Supervisor Name Role Phone KISHORE RICH CP Unavailable Allergies, Adverse Reactions, Alerts Substance Reaction Event Type Penicillin V Potassium Info Not Available Drug Allergy Erythromycin Info Not Available Drug Allergy Clindamycin HCl Info Not Available Drug Allergy Amoxicillin Info Not Available Drug Allergy Problems Problem Type Condition Code Onset Dates Condition Status Assessment Dental examination Z01.20 Active Medications Medication Code System Code Instructions Start Date End Date Status Dosage Cymbalta [facility] [address]-78 not defined Ativan [facility] [address]-19 not defined Adderall [facility] [address]-84 not defined Zithromax Z-Randy [facility] [address]-82 250 MG Orally Once a day March 27, 2016 April 01, 2016 2 tablets on the first day, then 1 tablet daily for 4 days Ambien [facility] [address]-43 not defined Lamotrigine [facility] [address]-94 not defined Procedures Procedure Coding System Code Date INTRAORL-PERIAPICAL 1 FILM 54682 CPT-4 D0220 March 27, 2016 LTD ORAL EVALUATION - PROBLEM FOCUS CPT-4 D0140 March 27, 2016 Vital Signs Date/Time: March 27, 2016 Blood Pressure Diastolic 78 mmHg Blood Pressure Systolic 120 mmHg Results No Known Results Summary Purpose eClinicalWorks Submission
--- OUTSIDE RECORDS SUMMARY | 2017-04-10 10:19 | XMS REPORT ---
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
[2017-04-10 10:20] VITALS: BP 107/70
--- OUTSIDE RECORDS SUMMARY | 2017-04-10 10:20 | XMS REPORT ---
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 Assessment Screening Z13.9 Active Assessment LGSIL on Pap smear of cervix R87.612 Active Problem Tobacco abuse Z72.0 Active Problem Tobacco abuse counseling Z71.6 Active Medications Medication Code System Code Instructions Start Date End Date Status Dosage Cymbalta [facility] [address]-22 30 MG Orally Once a day, 2 caps at hs 1 capsule Ranitidine HCl [facility] [address]-48 300 MG Orally Once a day 2016 1 tablet at bedtime Lamotrigine [facility] [address]-14 150 MG Orally Once a day not defined Ativan [facility] [address]-75 1 MG Orally every 6 hrs prn not defined Zofran ODT [facility] [address]-99 4 MG Orally every 8 hrs PRN 2016 1 tablet on the tongue and allow to dissolve Albuterol Sulfate HFA [facility] [address]-30 108 (90 Base) MCG/ACT Inhalation every 4 hrs 2016 2 puffs as needed Ambien [facility] [address]-42 5 MG Orally Once a day 1 tablet at bedtime as needed Adderall [facility] [address]-05 20 MG Orally twice daily 2 tabs Procedures Procedure Coding System Code Date BX/CURETT OF CERVIX W/SCOPE CPT-4 31689 Jul 26, 2016 URINE TEST CPT-4 87274 Jul 26, 2016 Vital Signs Date/Time: Jul 26, 2016 Cardiac Monitoring Heart Rate 88 bpm Weight 99.1 lbs Height 5'4" in BMI 17.01 Index Blood Pressure Diastolic 94 mmHg Blood Pressure Systolic 140 mmHg Results No Known Results Summary Purpose eClinicalWorks Submission
--- OUTSIDE RECORDS SUMMARY | 2017-04-10 10:20 | XMS REPORT ---
Author Author YENNI TOVAR [facility] eClinicalWorks Address Unknown Phone Unavailable Care Team Providers Care Ground Surveillance Systems Operator Name Role Phone YENNI TOVAR CP Unavailable [...] Instructions Start Date End Date Status Dosage Doxycycline Hyclate [facility] [address]-89 100 MG Orally every 12 hrs Aug 07, 2016 Aug 12, 2016 1 capsule Zofran ODT [facility] [address]-56 8 MG Orally every 8 hours Aug 07, 2016 as directed Results No Known Results Summary Purpose eClinicalWorks Submission
--- OUTSIDE RECORDS SUMMARY | 2017-04-10 10:20 | XMS REPORT ---
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 85086795 Problem Acute bronchitis, unspecified organism J20.9 Active 66203304 Problem Tobacco abuse counseling Z71.6 Active 548933564 Problem Gastroesophageal reflux disease, esophagitis presence not specified K21.9 Active 624680634 Problem Tobacco abuse Z72.0 Active 242921690 ALLERGIES Unknown Allergies SOCIAL HISTORY No smoking Hx information available PLAN OF CARE VITAL SIGNS MEDICATIONS Medication Instructions Dosage Frequency Start Date End Date Duration Status Zofran ODT 8 MG Orally every 8 hours as directed 8h 24 Jul, 2016 Active RESULTS No Results PROCEDURES No Known procedures IMMUNIZATIONS No Known Immunizations
--- OUTSIDE RECORDS SUMMARY | 2017-04-10 10:20 | XMS REPORT ---
Author Author RICH MICHELLE Organization eClinicalWorks Address Unknown Phone Unavailable Care Team Providers Care Seafood Fisherman Name Role Phone RICH MICHELLE CP Unavailable Allergies No Known Allergies Problems [...]
--- OUTSIDE RECORDS SUMMARY | 2017-04-10 10:20 | XMS REPORT ---
Author ROLDAN Sutton [facility] eClinicalWorks Address Unknown Phone Unavailable Care Team Providers Care Survival Specialist Name Role Phone ROLDAN HARRINGTON CP Unavailable Allergies, Adverse Reactions, Alerts Substance [...] Active Problem 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 Assessment Angioedema, initial encounter T78.3XXA Active Problem Tobacco abuse Z72.0 Active Problem Tobacco abuse counseling Z71.6 Active Medications Medication Code System Code Instructions Start Date End Date Status Dosage PredniSONE [facility] [address]-93 20 mg Orally Once a day Aug 02, 2016 Aug 07, 2016 2 tablets Ativan [facility] [address]-08 1 MG Orally every 6 hrs prn not defined Adderall [facility] [address]-43 20 MG Orally twice daily 2 tabs Ranitidine HCl [facility] [address]-49 300 MG Orally Once a day 2016 1 tablet at bedtime Ambien [facility] [address]-53 5 MG Orally Once a day 1 tablet at bedtime as needed Irxuegeauw-OJHW-Dxjtooki [facility] [address]-55 50-325-40 MG Orally 4 times a day Aug 02, 2016 1 capsule as needed Zofran ODT [facility] [address]-74 4 MG Orally every 8 hrs PRN 2016 1 tablet on the tongue and allow to dissolve Cymbalta [facility] [address]-69 30 MG Orally Once a day, 2 caps at hs 1 capsule Lamotrigine [facility] [address]-00 150 MG Orally Once a day not defined Albuterol Sulfate HFA [facility] [address]-69 108 (90 Base) MCG/ACT Inhalation every 4 hrs 2016 2 puffs as needed Procedures Procedure Coding System Code Date SOLUMEDROL (UP TO 125 MG) CPT-4 J2930 Aug 02, 2016 THER/PROPH/DIAG INJ, SC/IM CPT-4 19423 Aug 02, 2016 Office Visit, Est Pt., Level 3 CPT-4 04148 Aug 02, 2016 Vital Signs Date/Time: Aug 02, 2016 Cardiac Monitoring Heart Rate 104 bpm Weight 98.8 lbs Height 5'4" in BMI 16.96 Index Blood Pressure Diastolic 82 mmHg Blood Pressure Systolic 122 mmHg Results No Known Results Summary Purpose eClinicalWorks Submission
--- OUTSIDE RECORDS SUMMARY | 2017-04-10 10:20 | XMS REPORT ---
Author Author RICH MICHELLE Organization [facility] Address [address] [place] [address] Care Team Providers Care Correctional Case Manager Name Role Phone RICH MICHELLE Unavailable PROBLEMS Type Condition ICD9-CM Code SWQ72-MF Code Onset Dates Condition Status SNOMED Code Problem Acute bronchitis, unspecified organism J20.9 Active 76609657 Problem Gastroesophageal reflux disease, esophagitis presence not specified K21.9 Active 491244022 Problem Tobacco abuse Z72.0 Active 897814901 Problem Tobacco abuse counseling Z71.6 Active 373713522 ALLERGIES Unknown Allergies SOCIAL HISTORY No smoking Hx information available PLAN OF CARE VITAL SIGNS MEDICATIONS Unknown Medications RESULTS No Results PROCEDURES No Known procedures IMMUNIZATIONS No Known Immunizations
--- OUTSIDE RECORDS SUMMARY | 2017-04-10 10:20 | XMS REPORT ---
Author Author RICH MICHELLE Organization [facility] Address [address] [place] [address] Care Team Providers Care Motor Lodge Clerk Name Role Phone RICH MICHELLE Unavailable PROBLEMS Type Condition ICD9-CM Code CMD83-BG Code Onset Dates Condition Status SNOMED Code Problem Acute bronchitis, unspecified organism J20.9 Active 03856568 Problem Gastroesophageal reflux disease, esophagitis presence not specified K21.9 Active 474076810 Problem Tobacco abuse Z72.0 Active 495470662 Problem Tobacco abuse counseling Z71.6 Active 188283874 ALLERGIES Unknown Allergies SOCIAL HISTORY No smoking Hx information available PLAN OF CARE VITAL SIGNS MEDICATIONS Unknown Medications RESULTS No Results PROCEDURES No Known procedures IMMUNIZATIONS No Known Immunizations
--- OUTSIDE RECORDS SUMMARY | 2017-04-10 10:20 | XMS REPORT ---
Author Author YENNI TOVAR [facility] eClinicalWorks Address Unknown Phone Unavailable Care Team Providers Care Mine Motor Engineer Name Role Phone YENNI TOVAR CP Unavailable [...]
--- OUTSIDE RECORDS SUMMARY | 2017-04-10 10:20 | XMS REPORT ---
Author Author RICH MICHELLE Organization eClinicalWorks Address Unknown Phone Unavailable Care Team Providers Care Refinisher Name Role Phone RICH MICHELLE CP Unavailable Allergies No Known Allergies Problems No Known Problems Medications No Known Medications Results No Known Results Summary Purpose eClinicalWorks Submission
--- OUTSIDE RECORDS SUMMARY | 2017-04-10 10:20 | XMS REPORT ---
Author Author RICH MICHELLE Organization eClinicalWorks Address Unknown Phone Unavailable Care Team Providers Care Range Technician Name Role Phone RICH MICHELLE CP Unavailable [...]
--- OUTSIDE RECORDS SUMMARY | 2017-04-10 10:20 | XMS REPORT ---
Author Author KISHORE RICH Organization eClinicalWorks Address Unknown Phone Unavailable Care Team Providers Care Environmental Field Team Member Name Role Phone KISHORE RICH CP Unavailable Allergies, Adverse Reactions, Alerts Substance Reaction Event Type Penicillin V Potassium Info Not Available Drug Allergy Erythromycin Info Not Available Drug Allergy Clindamycin HCl Info Not Available Drug Allergy Amoxicillin Info Not Available Drug Allergy Problems Problem Type Condition Code Onset Dates Condition Status Assessment Dental caries K02.9 Active Assessment Dental examination Z01.20 Active Medications Medication Code System Code Instructions Start Date End Date Status Dosage Ativan [facility] [address]-[address] [facility] [address]-[address] [facility] [address]-[address] [facility] [address]-45 5-325 MG Orally every 6 hrs March 16, 2016March 1 tablet as needed Lamotrigine [facility] [address]-[address] [facility] [address]-49 not defined Procedures Procedure Coding System Code Date INTRAORL-PERIAPICAL 1 FILM 64771 CPT-4 D0220 March 16, 2016 INTRAORL-PERIAPICAL 1 FILM 02226 CPT-4 D0220 March 16, 2016 LTD ORAL EVALUATION - PROBLEM FOCUS CPT-4 D0140 March 16, 2016 EXTRAC ERUPTED TOOTH/EXPOSED ROOT CPT-4 D7140 March 16, 2016 INTRAORL-PERIAPICAL 1 FILM 97687 CPT-4 D0220 March 16, 2016 Vital Signs Date/Time: March 16, 2016 Blood Pressure Diastolic 88 mmHg Blood Pressure Systolic 124 mmHg Results No Known Results Summary Purpose eClinicalWorks Submission
[2017-04-10 10:40] VITALS: BP 107/70
--- NOTE | 2017-04-10 11:02 | Operative Report ---
Operative Report Date of Procedure/Surgery Apr 10, 2017 Surgeon (s) SONA MEDINA DO Emergency Medical Technician/Driver (s): na Post-Operative Diagnosis duodenitis,gastritis, hiatal hernia, reflux esophagitis Procedure Performed EGD c biopsies antrum and distal esophagus. Description of Procedure Anesthesia Type: MAC Estimated blood loss (mL): none Specimen(s) collected/removed antrum, distal esophagus Description of the Procedure COMPLICATIONS: None. INDICATIONS: The patient is a 31 female who presented with GERD. She was recommended to have EGD. She understands the risks and benefits and wished to proceed with procedure. Consent was signed and on the chart. The patient was taken to the endoscopy suite, placed in left lateral recumbent position. Timeout was performed. Scope was inserted into the mouth, down the esophagus, stomach and into the duodenum without difficulty. There are no polyps, masses or ulcerations within the duodenum but slight erythematous changes. The scope was slowly retracted back into the stomach where some erythematous changes in the antrum was present. Biopsy of the antrum at this area was obtained. The scope was then slowly retracted back and retroflexed noting a small hiatal hernia. Scope was returned to its normal position, slowly withdrawn back into the distal esophagus, there were some slight erythematous changes at the GE junction. Consistent with reflux esophagitis. Biopsy was obtained. Scope was slowly retracted back noting no other pathology. Patient tolerated procedure well without any complications. RECOMMENDATIONS: Patient will follow up in the office to discuss pathology results. She will be started on protonix and carafate. See how symptoms are doing and further recommendations at that time. Findings of the Procedure see above Allergies and Home Medications Allergies Coded Allergies: Penicillins (Verified Allergy, Intermediate, 06/27/16) amoxicillin (Verified Allergy, Mild, 06/27/16) clindamycin (Verified Allergy, Mild, 06/27/16) erythromycin base (Verified Allergy, Mild, 06/27/16) strawberry (Verified Allergy, Mild, 06/27/16) Home Medications Dextroamphetamine/Amphetamine 20 Mg Tablet, 20 MG PO BID, (Reported) Diphenhydramine HCl 25 Mg Capsule, 25 MG PO Q6H PRN for ITCHING, (Reported) Duloxetine HCl 30 Mg Capsule.dr, 30 MG PO MORNING, (Reported) Duloxetine HCl 60 Mg Capsule.dr, 60 MG PO HS, (Reported) Lamotrigine 150 Mg Tablet, 150 MG PO HS, (Reported) Lorazepam 1 Mg Tablet, 1 MG PO HS, (Reported) Lorazepam 1 Mg Tablet, 1 MG PO TID PRN for ANXIETY, (Reported) Ondansetron HCl 4 Mg Tab, 4 MG PO Q6H PRN for NAUSEA/VOMITING-1ST LINE, ( Reported) Pantoprazole Sodium 40 Mg Tablet.dr, 40 MG PO DAILY, #60 Ref 5 take twice a day for 2 weeks and then once a day after that. Prescribed by: SCOT VALENCIA on 04/10/17 1008 Quetiapine Fumarate 25 Mg Tablet, 25 MG PO HS, (Reported) Ranitidine HCl 150 Mg Tablet, 150 MG PO DAILY, (Reported) Ranitidine HCl 300 Mg Tablet, 300 MG PO DAILY PRN for HEARTBURN, (Reported) Sucralfate 1 Gm Tablet, 1 GM PO QID, #120 Prescribed by: SCOT VALENCIA on 04/10/17 1008 Zolpidem Tartrate 10 Mg Tablet, 10 MG PO HS, (Reported) SONA MEDINA DO Apr 10, 2017 11:02 am
== END 2017-04-10 10:40 | disposition home or self-care (01) ==
LOC: ENDO 08:14
PROVIDERS: ATTEND Surgery
DX: K21.0 Gastro-esophageal reflux disease with esophagitis (principal); K44.9 Diaphragmatic hernia without obstruction or gangrene; K29.70 Gastritis, unspecified, without bleeding; K29.80 Duodenitis without bleeding; F17.210 Nicotine dependence, cigarettes, uncomplicated
CPT/HCPCS: 84703

== ENCOUNTER 2017-12-25 13:00 | Outpatient (RCR) | payer MEDICAID ==
[~2017-12-25 13:00] MED LIST changes: +AZIT250T12 PO; -AZIT250T5 PO; +PANT40TA2 PO; +SUCR1TAB36 PO
== END 2017-12-25 15:08 | disposition home or self-care (01) ==
PROVIDERS: ATTEND Nurse Practitioner Family
DX: M54.2 Cervicalgia (principal); M54.6 Pain in thoracic spine

== ENCOUNTER → 2019-04-28 | Outpatient (CLI) | payer MEDICAID ==
[~2019-04-28] MED LIST changes: -RANI150T15 PO; +RANI150T46 PO
--- NOTE | 2019-04-28 17:55 | Diagnostic Imaging Report ---
INDICATION: Chronic bilateral knee pain. EXAMINATION: Bilateral knees from 04/28/2019. FINDINGS: Six views of the knees. Left knee: Unremarkable for fracture or dislocation. No joint effusion. Right knee: There are no fractures or dislocations. No joint effusions. IMPRESSION: 1. Negative right knee. 2. Negative left knee. Dictated by: Dictated on workstation # [id number]
== END ==
LOC: RAD FS 17:22
PROVIDERS: ATTEND Nurse Practitioner Family
DX: G89.29 Other chronic pain (principal); M25.561 Pain in right knee; M25.562 Pain in left knee

== ENCOUNTER 2020-04-09 10:08 | Outpatient (RCR) | payer MEDICAID, OTHER ==
[~2020-04-09 10:08] MED LIST changes: +RANI-613 PO; -RANI150T46 PO
== END 2020-04-09 10:30 | disposition home or self-care (01) ==
PROVIDERS: ATTEND Nurse Practitioner Family
DX: M54.6 Pain in thoracic spine (principal); M54.2 Cervicalgia

== ENCOUNTER 2021-02-19 18:19 | Emergency (ER) | payer MEDICAID ==
[~2021-02-19] VITALS: Ht 162.5 cm; Wt 51.9 kg
[2021-02-19] MEDS ORDERED: PROP20TA5 PO (18:48)
[2021-02-19] MEDS ORDERED: DEXT10TA24 PO (18:48)
[2021-02-19] MEDS ORDERED: ATOR10TA66 (18:48)
[2021-02-19] MEDS ORDERED: FERR325T24 (18:48)
[2021-02-19] MEDS ORDERED: IBUP-1780 PO (19:04)
[2021-02-19] MEDS ORDERED: CYCL10TA9 PO (19:04)
--- NOTE | 2021-02-19 19:04 | ED General ---
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 Describes painful to take deep breathe. 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 Nursing Sepsis Screen: No Definite Risk History of Present Illness Date Seen by Provider: February 19, 2021 Time Seen by Provider: 18:48 Initial Comments 35-year-old female presents ambulatory to the ER with complaint of left-sided rib pain. States she was wrestling with her significant other and felt a pop in her ribs. Since then pain with movement and with deep breath. Denies a history of rib fractures, osteoporosis or other pain or injury. Allergies and Home Medications Allergies Coded Allergies: Penicillins (Verified Allergy, Intermediate, 06/27/16) amoxicillin (Verified Allergy, Mild, 06/27/16) clindamycin (Verified Allergy, Mild, 06/27/16) erythromycin base (Verified Allergy, Mild, 06/27/16) strawberry (Verified Allergy, Mild, 06/27/16) Uncoded Allergies: PCN (Allergy, Unknown, 10/06/19) Home Medications Cyclobenzaprine HCl 10 Mg Tablet, 10 MG PO qhs PRN for SPASMS Prescribed by: SONG JONES on 02/19/211903 Dextroamphetamine/Amphetamine 10 Mg Tablet, 20 MG PO BID, (Reported) Last Action: New Order Diphenhydramine HCl 25 Mg Capsule, 25 MG PO Q6H PRN for ITCHING, (Reported) Last Action: Last Taken Edited Duloxetine HCl 30 Mg Capsule.dr, 30 MG PO MORNING, (Reported) Last Action: Last Taken Edited Duloxetine HCl 60 Mg Capsule.dr, 60 MG PO HS, (Reported) Last Action: Last Taken Edited Ibuprofen 800 Mg Tablet, 800 MG PO Q8H PRN for PAIN Prescribed by: SONG JONES on 02/19/211903 Lamotrigine 150 Mg Tablet, 150 MG PO HS, (Reported) Last Action: Last Taken Edited Lorazepam 1 Mg Tablet, 1 MG PO HS, (Reported) Last Action: Last Taken Edited Lorazepam 1 Mg Tablet, 1 MG PO TID PRN for ANXIETY, (Reported) Last Action: Last Taken Edited Propranolol HCl 20 Mg Tablet, 20 MG PO BID, (Reported) Last Action: New Order Quetiapine Fumarate 25 Mg Tablet, 25 MG PO HS, (Reported) Last Action: Last Taken Edited Zolpidem Tartrate 10 Mg Tablet, 10 MG PO HS, (Reported) Last Action: Last Taken Edited Patient Home Medication List Home Medication List Reviewed: Yes Review of Systems Review of Systems Constitutional: No fever, No malaise, No weakness Respiratory: see HPI; No short of breath, No stridor, No wheezing Cardiovascular: chest pain (left lateral and post thorax); No palpitations, No syncope Gastrointestinal: No abdominal pain, No nausea, No vomiting Musculoskeletal: back pain (left); No joint pain; muscle pain; No neck pain Skin: No change in color, No rash Past Jzazgeg-Ooophc-Jkmgyr Hx Past Med/Social Hx: Reviewed Nursing Past Med/Soc Hx Patient Social History Alcohol Use: Denies Use Smoking Status: Current Everyday Smoker Type Used: Cigarettes 2nd Hand Smoke Exposure: Yes Recent Infectious Disease Expo: No Recent Hopitalizations: No Seasonal Allergies Seasonal Allergies: Yes Past Medical History Surgeries: Yes (PORT PLACED AND REMOVED) Appendectomy, Gallbladder Respiratory: No Cardiac: No Neurological: No : No Gastrointestinal: Yes (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) Gastroesophageal Reflux Musculoskeletal: No Endocrine: No Cancer: No Psychosocial: Yes Anxiety, Depression Integumentary: No Blood Disorders: No Adverse Reaction/Blood Tranf: No Family Medical History Cancer, Diabetes Physical Exam Vital Signs Vital Signs - First Documented 02/19/21 18:26 Temp 36.6 Pulse 126 Resp 20 B/P (MAP) 112/75 (87) Pulse Ox 97 O2 Delivery Room Air Capillary Refill : Less Than 3 Seconds Height, Weight, BMI Height: 5'4.00" Weight: 101lbs. 0.0oz. 45.418658wv; 19.00 BMI Method:Stated General Appearance: No Apparent Distress, WD/WN Respiratory: Chest Non Tender, Lungs Clear, Normal Breath Sounds, No Accessory Muscle Use Cardiovascular: Regular Rate, Rhythm, No JVD Gastrointestinal: Non Tender, Soft Back: Normal Inspection, No Vertebral Tenderness; No CVA Tenderness (L), No CVA Tenderness (R); Decreased Range of Motion, Muscle Spasm, Other (tenderness post and lateral ribs4-6) Neurologic/Psychiatric: Alert, No Motor/Sensory Deficits, Normal Mood/Affect Progress/Results/Core Measures Suspected Sepsis Recent Fever Within 48 Hours: No Infection Criteria Present: None New/Unexplained Altered Menta: No Sepsis Screen: No Definite Risk SIRS Temperature: Pulse: 126 Respiratory Rate: 20 Blood Pressure 112 /75 Mean: 87 Results/Orders My Orders Orders - SONG JONES DO Ribs 2-3 View Left (02/19/21 18:57) Vital Signs/I&O 02/19/21 18:26 Temp 36.6 Pulse 126 Resp 20 B/P (MAP) 112/75 (87) Pulse Ox 97 O2 Delivery Room Air Capillary Refill : Less Than 3 Seconds Blood Pressure Mean: 87 Departure Impression Primary Impression: Muscle strain of upper back Disposition: HOME, SELF-CARE Condition: Stable Departure-Patient Inst. Decision time for Depature: 19:52 Referrals: RAKEL MORALES APRN (PCP/Family) Primary Care Physician Patient Instructions: Back Muscle Strain (DC) Add. Discharge Instructions: Follow up with Dr Morales next week for re-evaluation. All discharge instructions reviewed with patient and/or family. Voiced understanding. Scripts Ibuprofen (Ibuprofen) 800 Mg Tablet 800 MG PO Q8H PRN for PAIN, #30 TAB 0 Refills Prov: SONG JONES DO 02/19/21 Cyclobenzaprine HCl (Cyclobenzaprine HCl) 10 Mg Tablet 10 MG PO qhs PRN for SPASMS, #15 TAB 0 Refills Prov: JAZZSTINESONG DO 02/19/21 SONG JONES DO February 19, 2021 19:04
[2021-02-19 19:57] VITALS: BP 118/72
--- NOTE | 2021-02-19 20:17 | Diagnostic Imaging Report ---
INDICATION: Pain status post injury. COMPARISON: None. EXAMINATION: Frontal radiographic view of the chest was obtained. FINDINGS: Normal cardiac silhouette and pulmonary vasculature. Lungs are clear. There is no focal consolidation, large effusion or pneumothorax. Two dedicated radiographic views of the left ribs were obtained. No healing or displaced left-sided rib fracture is identified. No other gross acute osseous abnormality is seen. IMPRESSION: 1. No acute cardiopulmonary process. 2. No healing or displaced left-sided rib fracture. Dictated by: Dictated on workstation # [id number]
== END 2021-02-19 19:57 | disposition home or self-care (01) ==
LOC: EDUNIT# 18:19 → ER FS 18:22
DX: S29.012A Strain of muscle and tendon of back wall of thorax, initial encounter (principal); F41.9 Anxiety disorder, unspecified; F32.9 Major depressive disorder, single episode, unspecified; F17.210 Nicotine dependence, cigarettes, uncomplicated; Z88.0 Allergy status to penicillin; Z88.1 Allergy status to other antibiotic agents; X50.0XXA Overexertion from strenuous movement or load, initial encounter; Y93.72 Activity, wrestling
CPT/HCPCS: 71100